=== PATIENT | female | born 1990 | race Caucasian/White ===

== ENCOUNTER 2023-04-16 11:53 | Outpatient (CLI) | payer OTHER, SELFPAY ==
[2023-04-16 12:27] LABS: Hematocrit 38.7 % (37.0-47.0); Hemoglobin 12.1 g/dL (12.0-15.0); Mean Corpuscular HGB Conc 31.3 g/dl (32-36); Mean Corpuscular Hemoglobin 29.4 pg (26-34); Mean Corpuscular Volume 93.9 fl (80-100); Mean Platelet Volume 10.4 fl (7.4-10.4); Platelet Count Result 193 k/mm3 (150-375); Red Blood Count 4.12 M/mm3 (4.2-5.4); Red Cell Distribution Width 12.8 % (11.5-14.5); White Blood Count 5.3 K/mm3 (4.5-10.0)
[2023-04-16 12:39] LABS: Albumin Level 3.8 g/dL (3.5-5.1); Anion Gap 7 mmol/L (8-16); Blood Urea Nitrogen 17 mg/dL (7-17); Calcium 8.9 mg/dL (8.4-10.2); Carbon Dioxide 27 mmol/L (22-30); Chloride 102 mmol/L (98-107); Estimated Glomerular Filt Rate > 60; Glucose 106 mg/dL (65-110); Potassium 3.7 mmol/L (3.4-5.0); Sodium 136 mmol/L (137-145)
[2023-04-16 12:46] LABS: Prealbumin 20.4 mg/dL (17.6-36.0)
[2023-04-16 13:57] LABS: Iron 52 ug/dL (37-170)
[2023-04-20 12:49] LABS: Vitamin B1 12 nmol/L (8-30)
== END 2023-04-16 11:54 | disposition home or self-care (01) ==
PROVIDERS: Visit Provider Surgery Plastic and Reconstructive Surgery
DX: Z98.84 Bariatric surgery status (principal)
CPT/HCPCS: 36415; 80048; 82040; 83540; 84134; 84425; 85027

== ENCOUNTER 2023-05-09 01:04 | Day surgery (SDC) | payer OTHER, SELFPAY ==
[2023-04-30 13:17] VITALS: BMI 30.2
--- NOTE | 2023-04-30 13:25 | PC.NURSE ---
Report to the Outpatient Waiting Room, entrance under the green pavilion located off [facility], at time 0600_ on date _05/09/23_. Planned Procedure Time: _0730__. Time changes happen often and if your time is changed the preop area will call you the afternoon before. - You and your visitor will be asked to self-screen and do not enter if you have any COVID symptoms. - A mask is optional within the hospital at this time. Patients may have clear liquids (water, carbonated beverages, clear teas, apple juice) until 3 hours prior to surgery with a maximum of 20 ounces. - No food from midnight until time of surgery - Infants may have breast milk until 4 hours before surgery, infant formula 6 hours prior to surgery. - Children will be allowed to drink immediately following surgery. If applicable, please bring a bottle or sippy cup to assist with drinking. Juice, water, soda, and popsicles are readily available. For infants on formula, please bring formula the day of surgery. Pacifiers are allowed. Take the following medications with a SIP of water the morning of surgery: SERTRALINE DO NOT STOP ANY OF YOUR OTHER PRESCRIPTION MEDICATIONS PRIOR TO SURGERY ?EXCEPT THE FOLLOWING Medications to discontinue per physician SUPPLIMENTS Date to take last dose 05/06/23 Please no make-up, nail salvadorean, hairspray, perfume, deodorant, or body powder the day of surgery. No jewelry (including any body piercings) or valuables the day of surgery, leave them at home. Please take a shower or bath the night before, or the morning of, surgery with an antibacterial soap. Wear comfortable, loose fitting clothing. Children are encouraged to wear pajamas. - Jewelry must be removed prior to entering the operating room. Rings and piercings that are not removed may be cut off. - The hospital will not accept responsibility for valuables. - Please leave all valuables, including medications, at home the day of surgery. If you are going home after surgery, a licensed ice delivery driver must drive you home. - NO public transportation without another adult if you receive anesthesia. - We recommend that an adult stay with you for 24 hours following discharge. - We also recommend that you do not drive, make important decision, drink alcoholic beverages, or take any drugs that were not prescribed by your health care provider for at least 24 hours after your discharge time. For Pediatric surgeries, we recommend two adults accompany the child home. Follow any additional instructions given to you from your surgeon. If you or anyone in your household have experienced Covid symptoms in the past week, please notify your surgeon or the nurse liaison at the phone number below for possible testing. Telephone instructions given to _PATIENT__and asked if any additional questions and then verbalized understanding. Patient advised to call surgeon office or pre surgery nurse liaison [phone] if any additional questions.
[2023-05-09] VITALS (12 sets, daily range): BP systolic 110–154; BP diastolic 49–74; PULSE 52–77; RESP 10–16; TEMP 36.6–36.8; O2SAT 97–100
--- NOTE | 2023-05-09 06:35 | P.PNAN_ITS ---
Anes - Initial Pre Proc Eval Procedure: Operation Date: 05/09/23 07:30 Proposed Procedures p Bilateral Brachioplasty - Timbo Vieira MD Date/Time: 05/09/23 06:35 Surgeon: Timbo Vieira MD Pre Op Diagnosis: skin laxity Patient Data Age: 32 Gender: F Height: 1.63 m Weight: 80 kg Allergies Allergy/AdvReac Type Severity Reaction Status Date / Time No Known Allergies Allergy Verified 04/30/23 13:15 Home Medications Medication Instructions Recorded Confirmed Type calcium 500 mg tablet 500 mg PO DAILY 04/30/23 04/30/23 History multivit with minerals-iron 18 1 tablet PO DAILY 04/30/23 04/30/23 History mg-folic ac 400 mcg-vit K 25 mcg tablet (Adults Multivitamin) sertraline 100 mg tablet 10 mg PO DAILY 04/30/23 04/30/23 History Laboratory Tests 05/09/23 06:23 Cotinine Pending Patient hx anesthesia problems: none Family hx anesthesia problems: none Results Review: All pre-operative results and documents have been reviewed as part of the pre- operative evaluation. [facility] Past Medical History Medical History (Updated 05/09/23 @ 06:35 by Caleb Cha MD) Obesity Surgical History Surgical History (Updated 05/09/23 @ 06:36 by Caleb Cha MD) S/P gastric sleeve procedure Social History Social History Smoking status: Never smoker Alcohol intake: current Drinks per week: 1 Substance use type: other Other substance usage details: THC GUMMIES Last use: 3 MONTHS Living arrangements: with family Anes - Eval Final PreProcedure Day of Procedure 05/09/23 06:35 Patient weight: obese Heart: regular rate and rhythm Lungs: clear to auscultation Airway: Mallampati scale class II Neurological: alert and oriented Last oral intake: >/= 8 hours ASA classification: II Emergent: no Anesthetic plan: proceed Anesthesia type and monitoring: general LMA and standard monitoring Results Review: All pre-operative results and documents have been reviewed as part of the pre- operative evaluation. Informed Consent: The patient's anesthetic plan and its attendant risks and benefits were discussed with the patient/family/POA. Questions were solicited and answers provided to the satisfaction of the patient/family/POA.
[2023-05-09 06:40] LABS: Urine Cotinine NEGATIVE
[2023-05-09] MEDS: LACTATED RINGERS 1,000 ML 30 ML IV CONT ×2 (06:45→10:05)
[2023-05-09] MEDS: SCOPOLAMINE 1 MG PATCH 1 PATCH TRANSDERM (07:18)
--- NOTE | 2023-05-09 07:18 | WPDHPUPDATE1 ---
History and Physical Update Update Date/Time: 05/09/23 07:18 History and Physical has been reviewed, including an updated exam of the patient. There are NO changes in the patient's condition. Risks, benefits, and alternatives have been discussed and questions answered. Patient agrees to proceed with procedure.
--- NOTE | 2023-05-09 07:18 | W.PM.PROC2 ---
Procedure Note - Detailed Date of Procedure 05/09/23 Pre-op Diagnosis skin laxity Post-op Diagnosis Same Procedure Performed Bilateral brachioplasty Surgeon Timbo Vieira MD Anesthesia General Findings Lipoaspirate: 1,000 cc Description of Procedure Here for the above procedures. Preoperatively risks, benefits, alternatives were discussed again today in extensive detail. I want to be very realistic about the risks involved as well as expectations. Made sure answered all of their questions to satisfaction. They voiced a clear understanding. Consent obtained. Patient was marked in the preoperative holding area with their verification. Taken to the operating placed supine on the operating table. Anesthesia was provided by anesthesiology. Prepped and draped in a standard sterile fashion. Surgical time-out was taken. Stab incisions were made and I tumesced with a tumescent solution. Once adequate time for hemostasis suction lipectomy was with a 4 mm basket cannula based on S.A.F.E. technique. This was completed based on preoperative planning, intraoperative observation, and rolling pinch test which was in full agreement. I completely de-fatted the planned resection area and a strip avulsion technique was completed. Starting proximal to distal a 10 blade was used to excise the intervening skin and this was tacked as we proceed to ensure good closure. This was closed using a 2-0 Quill, 3-0 strata fix, running subcuticular 4-0 Monocryl, and tissue glue. Dressings were placed. Tolerated the procedure well. Taken to the PACU without difficulty. All instrument sponge counts were correct at the end of the case. Estimated Blood Loss 50 Drains No Packing No Pathology None sent Complications No immediate complications Condition Stable Disposition PACU
[2023-05-09] MEDS: ceFAZolin 2 GM/D5W 50 ML 2 GM/50 ML BAG IVPB (07:28)
[2023-05-09] MEDS: TRANEXAMIC ACID 1,000MG/ISO100 1,000 MG/100 ML BAG 200 MG IVPB (07:37)
--- NOTE | 2023-05-09 08:33 | SUR.OPER ---
LEFT FOOT IV CHECK INTACT
--- NOTE | 2023-05-09 09:17 | SUR.OPER ---
LEFT FOOT IV CHECK INTACT
[2023-05-09] MEDS: LACTATED RINGERS IRRIG 1,000 ML, LIDOCAINE HCL 1% LOCAL INJ 50 ML, EPINEPHrine HCL INJ ... INFILTRATE (09:21)
[2023-05-09] MEDS: fentaNYL CITRATE INJ (*CRX) 100 MCG/2 ML VIAL 25 MCG IV PUSH ×4 (10:40→11:37)
[2023-05-09] MEDS: oxyCODONE HCL (*CRX) 5 MG TAB IR PO (12:33)
== END 2023-05-09 13:27 | disposition home or self-care (01) ==
PROVIDERS: PCP Internal Medicine; Visit Provider Surgery Plastic and Reconstructive Surgery
PROC: (CPT 15836; principal; 2023-05-09 07:30)
DX: Z41.1 Encounter for cosmetic surgery (principal); L57.4 Cutis laxa senilis; E66.9 Obesity, unspecified; Z68.30 Body mass index [BMI] 30.0-30.9, adult; Z98.84 Bariatric surgery status; F12.90 Cannabis use, unspecified, uncomplicated
CPT/HCPCS: 15878; 15836; 80307; A9270; J0171; J0690; J1100; J1170; J2250; J2405; J3010; J7120

== ENCOUNTER 2024-10-13 15:45 | Outpatient (CLI) | payer BC, SELFPAY ==
--- NOTE | ~2024-10-13 | US_ITS ---
EXAMINATION: US thyroid DATE: 10/13/2024 16:09 INDICATION: Nontoxic goiter TECHNIQUE: Multiple ultrasound images of the thyroid were obtained. COMPARISON: None. FINDINGS: The right thyroid lobe measures 5.2 x 1.6 x 1.9 cm. The left thyroid lobe measures 3.9 x 1.3 x 1.8 c m. The isthmus measures 0.6 cm. There is heterogeneous echotexture and echogenicity throughout the th yroid gland, which decreases sensitivity for nodules detection. No discrete nodules identified. Vaishali l vascular flow is present. IMPRESSION: Heterogeneous thyroid gland as can be seen with Graves' disease and Amrit's thyroiditis. Reviewed, dictated and finalized at location K.
== END 2024-10-13 15:46 | disposition home or self-care (01) ==
LOC: MICIMG 15:46
PROVIDERS: PCP Internal Medicine; Visit Provider Internal Medicine Endocrinology, Diabetes & Metabolism
DX: E05.00 Thyrotoxicosis with diffuse goiter without thyrotoxic crisis or storm (principal); E06.3 Autoimmune thyroiditis
CPT/HCPCS: 76536

== ENCOUNTER 2025-02-21 12:20 | Outpatient (CLI) | payer BC, SELFPAY ==
--- NOTE | ~2025-02-21 | XR_ITS ---
EXAMINATION: XR hip RT min 2V, 02/21/2025 12:45 CONCRETE PRECAST MOULDER HISTORY: Pain in right hip COMPARISON: No comparisons available. Findings: No acute fracture or malalignment. No significant degenerative changes. Soft tissues unremarkable. Impression: No acute fracture or malalignment. Reviewed, dictated and finalized at location P. RETE PRECAST MOULDER Impression: No acute fracture or malalignment.
== END 2025-02-21 12:21 | disposition home or self-care (01) ==
PROVIDERS: PCP Internal Medicine; Visit Provider Internal Medicine
DX: M25.551 Pain in right hip (principal)
CPT/HCPCS: 73502